=== PATIENT | male | born 1985 | race Two or more races ===

== ENCOUNTER 2021-01-15 13:01 | Emergency (ER) | payer OTHER ==
[~2021-01-15] VITALS: Ht 180.3 cm; Wt 110.2 kg
[2021-01-15 14:35] VITALS: BP 153/88
[2021-01-15] MEDS ORDERED: traMADol HCL 50 MG TAB PO ONE (16:30)
== END 2021-01-15 17:17 | disposition home or self-care (01) ==
LOC: ER 13:01
DX: S80.12XA Contusion of left lower leg, initial encounter (principal); Z90.49 Acquired absence of other specified parts of digestive tract; Z88.0 Allergy status to penicillin; X50.1XXA Overexertion from prolonged static or awkward postures, initial encounter; Y93.89 Activity, other specified; Y92.89 Other specified places as the place of occurrence of the external cause; Y99.0 Civilian activity done for income or pay
CPT/HCPCS: 73700